=== PATIENT | female | born 1985 | race Caucasian/White ===

== ENCOUNTER → 2023-08-20 10:10 | Outpatient (REF) | payer OTHER, SELFPAY ==
[2023-08-22 14:27] LABS: Varicella Zoster IgG (VZV) Negative
== END ==
LOC: OHS 10:10
PROVIDERS: ATTENDING PHYSICIAN Nurse Practitioner Family
DX: Z23 Encounter for immunization (principal)
CPT/HCPCS: 36415; 86787

== ENCOUNTER → 2023-10-04 07:03 | Outpatient (REF) | payer BC, SELFPAY ==
[2023-10-04 10:15] LABS: Urine Albumin Negative (Neg - Trace); Urine Bilirubin Negative (Negative); Urine Character Clear (Clear); Urine Color Yellow; Urine Glucose Negative (Negative); Urine Ketone Negative (Negative); Urine Leukocyte Negative (Negative); Urine Nitrite Negative (Negative); Urine Occult Blood Negative (Negative); Urine Specific Gravity 1.015 (<1.030); Urine Urobilinogen Negative (Neg - 1+)
[2023-10-04 10:22] LABS: % Basophils 0.5 % (0-2); % Eosinophils 2.1 % (0-6); % Immature Granulocytes 0.2 % (0-0.5); % Lymphocytes 39.4 % (20.5-51.1); % Monocytes 9.4 % (1.7-9.3); % Neutrophils 48.4 % (42.2-75.2); Absolute Eosinophils 0.1 10^3/uL (0-0.7); Absolute Lymphocytes 2.2 10^3/uL (1.2-3.4); Absolute Monocytes 0.5 10^3/uL (0.1-0.6); Absolute Neutrophils 2.7 10^3/uL (1.4-6.5); Hematocrit 38.3 % (37.0-47.0); Hemoglobin 12.7 g/dL (12.0-16.0); Mean Corp Hgb Conc. 33.2 g/dL (33.0-37.0); Mean Corpuscular Hgb 31.3 pg (27.0-31.0); Mean Corpuscular Volume 94.3 fL (81.0-99.0); Mean Platelet Volume 11.8 fL (7.4-10.4); Nucleated Red Blood Cells % 0 %; Platelet Count 205 10^3/uL (130-400); Red Blood Cell Count 4.06 10^6/uL (4.20-5.40); Red Cell Dist. Width 12.4 % (11.5-14.5); White Blood Cell Count 5.6 10^3/uL (4.8-10.8)
[2023-10-04 10:51] LABS: ALT (SGPT) 17 U/L (0-35); AST (SGOT) 26 U/L (14-36); Albumin 4.6 g/dl (3.5-5.0); Alkaline Phosphatase 55 U/L (38-126); Blood Urea Nitrogen 12 mg/dl (7-17); Calcium 9.7 mg/dl (8.4-10.2); Carbon Dioxide 26 mmol/L (22-30); Chloride 98 mmol/L (98-107); Glucose 92 mg/dl (70-99); HDL Cholesterol 63 mg/dl; LDL Cholesterol, Calculated 87 mg/dl; Potassium 4.3 mmol/L (3.5-5.1); Sodium 136 mmol/L (135-145); Total Bilirubin 0.4 mg/dl (0.2-1.3); Total Cholesterol 163 mg/dl (50-199); Total Protein 7.4 g/dl (6.3-8.2); Triglyceride 69 mg/dl (10-149); Very Low Density Lipoprotein 13 mg/dl (0-30); eGFR > 60.00
[2023-10-04 10:59] LABS: Total Thyroxine 6.32 ug/dl (5.5-11.0)
[2023-10-04 11:12] LABS: TSH 2.53 uIU/ml (0.47-4.68)
[2023-10-05 23:46] LABS: Total T3 (Sendout) 107 ng/dL (80-200)
== END ==
LOC: HWLAB 07:03
PROVIDERS: ATTENDING PHYSICIAN Nurse Practitioner Adult Health
DX: Z00.00 Encounter for general adult medical examination without abnormal findings (principal)
CPT/HCPCS: 36415; 80053; 80061; 81003; 84436; 84443; 84480; 85025

== ENCOUNTER → 2024-08-29 07:37 | Outpatient (REF) | payer BC, SELFPAY ==
[2024-08-29 09:08] LABS: IgA 202 mg/dl (70-400)
[2024-08-31 00:10] LABS: tTG IgA Antibody <1.02 FLU (0.00-4.99)
[2024-08-31 04:29] LABS: H. pylori Breath Test Negative (Negative)
[2024-08-31 16:15] LABS: Endomysial IgA Antibody Titer <1:10 (<1:10)
== END ==
LOC: REG 07:37
PROVIDERS: ATTENDING PHYSICIAN Internal Medicine Gastroenterology; FAMILY PHYSICIAN Nurse Practitioner Adult Health
DX: R14.0 Abdominal distension (gaseous) (principal)
CPT/HCPCS: 36415; 82784; 83013; 83516; 86231

== ENCOUNTER 2024-09-18 06:21 | Day surgery (SDC) | payer BC, SELFPAY ==
[2024-09-18 10:24] LABS: HCG, Urine Qualitative Screen Negative
== END 2024-09-18 13:24 | disposition home or self-care (01) ==
LOC: GI 06:21
PROVIDERS: ATTENDING PHYSICIAN Internal Medicine Gastroenterology
DX: Q43.8 Other specified congenital malformations of intestine (principal); K59.00 Constipation, unspecified; R14.0 Abdominal distension (gaseous)
CPT/HCPCS: 45378; 43239; 88305; 81025; 88342

== ENCOUNTER → 2024-10-20 16:32 | Outpatient (REF) | payer BC, SELFPAY ==
[2024-10-20 17:19] LABS: % Basophils 0.2 % (0-2); % Eosinophils 1.3 % (0-6); % Immature Granulocytes 0.4 % (0-0.5); % Monocytes 8.6 % (1.7-9.3); % Neutrophils 48.5 % (42.2-75.2); Absolute Eosinophils 0.1 10^3/uL (0-0.7); Absolute Lymphocytes 1.9 10^3/uL (1.2-3.4); Absolute Monocytes 0.4 10^3/uL (0.1-0.6); Absolute Neutrophils 2.2 10^3/uL (1.4-6.5); Hematocrit 37.5 % (37.0-47.0); Hemoglobin 11.9 g/dL (12.0-16.0); Mean Corp Hgb Conc. 31.7 g/dL (33.0-37.0); Mean Corpuscular Hgb 30.2 pg (27.0-31.0); Mean Corpuscular Volume 95.2 fL (81.0-99.0); Nucleated Red Blood Cells % 0 %; Platelet Count 191 10^3/uL (130-400); Red Blood Cell Count 3.94 10^6/uL (4.20-5.40); Red Cell Dist. Width 12.7 % (11.5-14.5); White Blood Cell Count 4.6 10^3/uL (4.8-10.8)
[2024-10-20 17:24] LABS: Urine Albumin Negative (Neg - Trace); Urine Bilirubin Negative (Negative); Urine Character Clear (Clear); Urine Color Yellow; Urine Glucose Negative (Negative); Urine Ketone Negative (Negative); Urine Leukocyte Negative (Negative); Urine Nitrite Negative (Negative); Urine Occult Blood Negative (Negative); Urine Urobilinogen Negative (Neg - 1+); Urine pH 6.5 (5.0-9.0)
[2024-10-20 17:28] LABS: ALT (SGPT) 15 U/L (0-35); AST (SGOT) 23 U/L (14-36); Albumin 4.4 g/dl (3.5-5.0); Alkaline Phosphatase 41 U/L (38-126); Blood Urea Nitrogen 14 mg/dl (7-17); Calcium 8.8 mg/dl (8.4-10.2); Carbon Dioxide 25 mmol/L (22-30); Chloride 106 mmol/L (98-107); Glucose 91 mg/dl (70-99); HDL Cholesterol 64 mg/dl; LDL Cholesterol, Calculated 91 mg/dl; Potassium 4.4 mmol/L (3.5-5.1); Sodium 138 mmol/L (135-145); Total Bilirubin 0.5 mg/dl (0.2-1.3); Total Cholesterol 161 mg/dl (50-199); Total Protein 6.9 g/dl (6.3-8.2); Triglyceride 31 mg/dl (10-149); Very Low Density Lipoprotein 6 mg/dl (0-30); eGFR > 60.00
[2024-10-20 17:45] LABS: Free T3 3.23 pg/ml (2.77-5.27); Vitamin D, 25-OH*** 24.8 ng/mL (30-80)
[2024-10-20 17:58] LABS: TSH 1.65 uIU/ml (0.47-4.68)
== END ==
LOC: CLAB 16:32
PROVIDERS: ATTENDING PHYSICIAN Nurse Practitioner Adult Health
DX: Z00.00 Encounter for general adult medical examination without abnormal findings (principal); D50.9 Iron deficiency anemia, unspecified; E55.9 Vitamin D deficiency, unspecified; E78.2 Mixed hyperlipidemia; R53.83 Other fatigue
CPT/HCPCS: 36415; 80053; 80061; 81003; 82306; 84439; 84443; 84481; 85025